=== PATIENT | female | born 1990 | race Caucasian/White ===

== ENCOUNTER 2019-08-28 11:13 | Emergency (ER) | payer MEDICAID, OTHER ==
[~2019-08-28] VITALS: Ht 157.5 cm; Wt 88.5 kg
[2019-08-28 11:27] VITALS: BP 115/75
== END 2019-08-28 13:00 | disposition home or self-care (01) ==
LOC: ER 11:13
DX: J02.9 Acute pharyngitis, unspecified (principal)
CPT/HCPCS: 71046